=== PATIENT | male | born 1940 | race Caucasian/White ===

== ENCOUNTER → 2017-11-29 | Outpatient (CLI) | payer MEDICARE, BC | END | disposition home or self-care (01) | LOC: HKI 13:40 | DX: M25.552 Pain in left hip (principal); M25.551 Pain in right hip; M54.5 Low back pain | CPT/HCPCS: G0463 ==

== ENCOUNTER → 2018-05-30 | Outpatient (CLI) | payer MEDICARE, BC | END | disposition home or self-care (01) | LOC: HKI 08:51 | DX: M25.552 Pain in left hip (principal); M25.551 Pain in right hip; M54.5 Low back pain | CPT/HCPCS: G0463 ==